=== PATIENT | female | born 1945 | race Caucasian/White ===

== ENCOUNTER → 2016-09-16 | Outpatient (CLI) | payer MEDICARE, OTHER ==
[~2016-09-16] MED LIST: AMLO1TAB67 PO; AMLO1TAB84 PO; ASPI-496 PO; ASPI-770 PO; ATOR10TA PO; ATOR40TA PO; CIPR500T87 PO; CYAN100T PO; LISI-167 PO; METO50TA82 PO; OXYC-302 PO; PANT40TA3 PO; POLY17PO5 PO; TICA90TA PO; TRIA1TAB3 PO
== END | disposition home or self-care (01) ==
LOC: CFH 14:23
PROVIDERS: ATTEND Internal Medicine Cardiovascular Disease
DX: I35.8 Other nonrheumatic aortic valve disorders (principal); I34.8 Other nonrheumatic mitral valve disorders; I34.0 Nonrheumatic mitral (valve) insufficiency; I07.1 Rheumatic tricuspid insufficiency
CPT/HCPCS: 93306

== ENCOUNTER 2017-02-18 00:32 | Emergency (ER) | payer MEDICARE, OTHER ==
[~2017-02-18] VITALS: Ht 167.6 cm; Wt 85.0 kg
[~2017-02-18 00:32] MED LIST changes: -AMLO1TAB67 PO; +AMLO1TAB86 PO
[2017-02-18] MEDS ORDERED: ROSU10TA PO (00:52)
[2017-02-18] MEDS ORDERED: METOPROLOL 1 MG/ML, 5ML ONE (00:58)
[2017-02-18] MEDS ORDERED: METOPROLOL 1 MG/ML, 5ML IVPush ONE (01:00)
[2017-02-18] MEDS ORDERED: SODIUM CHLORIDE 0.9% 1,000ML IVBOLUS ONE (01:00)
[2017-02-18] MEDS ORDERED: SODIUM CHLORIDE FLUSH 10ML SYR IVF ONE (01:00)
[2017-02-18] MEDS ORDERED: MORPHINE SULFATE 4 MG/ML, 1ML IVPush PRN (01:00)
[2017-02-18] MEDS ORDERED: ASPIRIN 81 MG TABLET CHEW PO ONE (01:00)
[2017-02-18] MEDS ORDERED: MORPHINE SULFATE 4 MG/ML, 1ML ONE (01:06)
[2017-02-18] MEDS ORDERED: ASPIRIN 81 MG TABLET CHEW ONE (01:07)
[2017-02-18 01:11] LABS: HEMATOCRIT 43.1 % (34.6-47.8); HEMOGLOBIN 14.7 g/dL (11.7-16.4); WHITE BLOOD COUNT 10.7 x10^3/uL (3.4-10)
[2017-02-18] MEDS ORDERED: PROPOFOL 10 MG/ML, 20ML ONE (01:17)
[2017-02-18 01:23] LABS: ASPARTATE AMINO TRANSFERASE 23 U/L (15-37); BLOOD UREA NITROGEN 17 mg/dL (7-18)
[2017-02-18] MEDS ORDERED: PROPOFOL 10 MG/ML, 20ML IVPush ONE (01:30)
[2017-02-18 01:32] LABS: IS PT STATUS REG ER OR PRE ER? YES
[2017-02-18 02:16] LABS: PATH.CAST-FLAG NOT PRESENT; SPERM-FLAG NOT PRESENT; SRC-FLAG NOT PRESENT; XTAL-FLAG NOT PRESENT; YLC-FLAG NOT PRESENT
[2017-02-18 02:38] VITALS: BP 143/86
== END 2017-02-18 02:54 | disposition home or self-care (01) ==
LOC: ED 01:14
DX: I48.91 Unspecified atrial fibrillation (principal); R07.89 Other chest pain; I25.10 Atherosclerotic heart disease of native coronary artery without angina pectoris
CPT/HCPCS: 36415; 71010; 80053; 81001; 83880; 84436; 84443; 84484; 85025; 85610; 85730; 87086; 92960; 93005; 96361; 96374; 96375; 99152; 99153; 99291; J7030

== ENCOUNTER → 2018-01-03 | Outpatient (CLI) | payer MEDICARE, OTHER ==
[~2018-01-03] MED LIST changes: -ASPI-770 PO; +ASPI81TA59 PO; +REGADENOSON 0.4 MG/5 ML SYRINGE ONE; +ROSU10TA PO
== END | disposition home or self-care (01) ==
LOC: CFH 07:03
PROVIDERS: ATTEND Internal Medicine Cardiovascular Disease
DX: I25.10 Atherosclerotic heart disease of native coronary artery without angina pectoris (principal); I10 Essential (primary) hypertension; Z88.2 Allergy status to sulfonamides
CPT/HCPCS: 78452; 93017; 93306; A9502; J2785

== ENCOUNTER 2018-05-21 18:59 | Inpatient (IN) | payer MEDICARE, OTHER ==
[~2018-05-21] VITALS: Ht 166.4 cm; Wt 87.9 kg
[~2018-05-21 18:59] MED LIST changes: -REGADENOSON 0.4 MG/5 ML SYRINGE ONE
--- NOTE | 2018-05-21 19:05 | NUR ---
brought in by emy from home. patient found on the floor by family ~ 5 pm. last known well 0. c/o fix right side gaze( deviation ) with very slight right facial droop. alert and oriented. + vomiting.
[2018-05-21] MEDS ORDERED: OMNIPAQUE 350 MG/ML, 100ML BOTTLE ONE (19:20)
--- NOTE | 2018-05-21 19:45 | NUR ---
Dr. Vasquez on tele neuro for patient evaluation with the assistance of JOHNSON Bowens. background check coordinator.
[2018-05-21] MEDS ORDERED: ALTEPLASE 1 MG/ML ONE (20:00)
--- NOTE | 2018-05-21 20:08 | NUR ---
evaluation done. patient candidate for alteplase. family and patient ok to have start patient on TPA.
[2018-05-21 20:10] LABS: BASOPHILS # (AUTO) 0.05 x10^3/uL (0-0.1); BASOPHILS % (AUTO) 0 % (0-1); EOSINOPHILS # (AUTO) 0.02 x10^3/uL (0-0.4); EOSINOPHILS % (AUTO) 0 % (1-7); LYMPHOCYTES # (AUTO) 0.69 x10^3/uL (1-3.4); LYMPHOCYTES % (AUTO) 5 % (22-44); MD NO; MEAN CORPUSCULAR HEMOGLOBIN 29.3 pg (27.0-34.8); MEAN CORPUSCULAR HGB CONC 33.8 g/dL (32.4-35.8); MEAN CORPUSCULAR VOLUME 86.7 fL (80-100); MEAN PLATELET VOLUME 7.4 fL (7.4-10.4); MONOCYTES % (AUTO) 6 % (2-9); NEUTROPHILS # (AUTO) 13.75 x10^3/uL (1.8-6.8); NEUTROPHILS % (AUTO) 89 % (42-75); PLATELET COUNT 256 x10^3/uL (130-400); RED BLOOD COUNT 4.66 x10^6/uL (3.82-5.3); RED CELL DISTRIBUTION WIDTH 12.9 % (9.6-15.2)
--- NOTE | 2018-05-21 20:12 | NUR ---
7.74 mg TPA bolus given.
--- NOTE | 2018-05-21 20:13 | NUR ---
69.66 mg TPA infusing at this time.
[2018-05-21] MEDS ORDERED: ONDANSETRON 2MG/ML, 2ML ONE (20:15)
[2018-05-21 20:21] LABS: INTERNATIONAL NORMALIZED RATIO 1.08 (0.93-1.1); PROTHROMBIN TIME 11.4 Seconds (9.6-11.5)
[2018-05-21] MEDS ORDERED: ONDANSETRON 2MG/ML, 2ML IVPush ONE (20:30)
[2018-05-21] MEDS ORDERED: SODIUM CHLORIDE FLUSH 10ML SYR IVF PRN (20:30)
[2018-05-21] MEDS ORDERED: ALTEPLASE IV ONE ×2 (21:00)
--- NOTE | 2018-05-21 21:13 | NUR ---
TPA INFUSED. PATIENT ALERT AND ORIENTED. PUPILS 3 MM BILATERAL EQUAL AND REACTIVE. C/O HEADACHE. VSS
--- NOTE | 2018-05-21 22:00 | NUR ---
Dr. Moreau at bedside. daughter updated for plan of care. VSS. awaiting room assignment.
[2018-05-21] MEDS: SODIUM CHLORIDE 0.9% 1,000 ML IV SCH (22:28)
[2018-05-21] MEDS ORDERED: ONDANSETRON 4 MG TABLET PO PRN (22:30)
[2018-05-21] MEDS ORDERED: POLYETHYLENE GLYCOL 17 GM PACKET PO PRN (22:30)
[2018-05-21] MEDS ORDERED: BUTALB/APAP/CAFFEINE 50MG/325MG/40MG PO PRN (22:30)
[2018-05-21] MEDS ORDERED: ONDANSETRON 2MG/ML, 2ML IVPush PRN (22:30)
--- NOTE | 2018-05-21 22:54 | NUR ---
Bed assigned. report to JOHNSON Bob.
[2018-05-21] MEDS: ATORVASTATIN 40 MG TABLET PO SCH (23:26)
[2018-05-21] MEDS: ACETAMINOPHEN 325 MG TABLET PO PRN (23:26)
[2018-05-22 04:20] LABS: BASOPHILS # (AUTO) 0.03 x10^3/uL (0-0.1); BASOPHILS % (AUTO) 0 % (0-1); EOSINOPHILS % (AUTO) 2 % (1-7); LYMPHOCYTES # (AUTO) 1.04 x10^3/uL (1-3.4); LYMPHOCYTES % (AUTO) 10 % (22-44); MD NO; MEAN CORPUSCULAR HEMOGLOBIN 29.7 pg (27.0-34.8); MEAN CORPUSCULAR HGB CONC 34.6 g/dL (32.4-35.8); MEAN CORPUSCULAR VOLUME 85.9 fL (80-100); MEAN PLATELET VOLUME 7.3 fL (7.4-10.4); MONOCYTES # (AUTO) 0.72 x10^3/uL (0.2-0.8); MONOCYTES % (AUTO) 7 % (2-9); NEUTROPHILS # (AUTO) 8.19 x10^3/uL (1.8-6.8); NEUTROPHILS % (AUTO) 81 % (42-75); PLATELET COUNT 236 x10^3/uL (130-400); RED BLOOD COUNT 4.16 x10^6/uL (3.82-5.3); RED CELL DISTRIBUTION WIDTH 12.8 % (9.6-15.2)
[2018-05-22 04:26] VITALS: BP 127/54
[2018-05-22 04:32] LABS: ALANINE AMINOTRANSFERASE 19 U/L (12-78); ALBUMIN 3.2 g/dL (3.4-5.0); ANION GAP 6 mmol/L (5-15); CALCIUM 8.7 mg/dL (8.5-10.1); CHLORIDE 108 mmol/L (98-107); CREATININE 0.72 mg/dL (0.55-1.02)
[2018-05-22 04:34] LABS: ALKALINE PHOSPHATASE 73 U/L (45-117); BILIRUBIN,TOTAL 0.8 mg/dL (0.2-1.0); CHOL/HDL RATIO 3.2; CHOLESTEROL, TOTAL 116 mg/dL (140-239); HDL CHOL % 31 % (28-40); HDL CHOLESTEROL (DIRECT) 36 mg/dL (40-60); LDL CHOLESTEROL,CALCULATED 66 mg/dL (54-169); LDL/HDL RATIO 1.8 (0.5-3.0); TOTAL PROTEIN 6.5 g/dL (6.4-8.2); TRIGLYCERIDES 68 mg/dL (50-200); VLDL CHOLESTEROL 14 mg/dL (0-25)
[2018-05-22 04:55] VITALS: BP 136/57
[2018-05-22] MEDS: LOSARTAN 50MG TABLET PO SCH (09:00)
[2018-05-22] MEDS: ACETAMINOPHEN 325 MG TABLET PO PRN (09:53)
[2018-05-22] MEDS: METOPROLOL TARTRATE 50 MG TABLET PO SCH ×2 (09:54→21:11)
[2018-05-22] MEDS: AMLODIPINE 10 MG TAB PO SCH (11:18)
[2018-05-22] MEDS ORDERED: GADOBUTROL 10 MMOL/10 ML PFS ONE (13:07)
[2018-05-22] MEDS: SODIUM CHLORIDE 0.9% 1,000 ML IV SCH (18:00)
[2018-05-22] MEDS: ATORVASTATIN 40 MG TABLET PO SCH (21:01)
[2018-05-23 04:00] VITALS: BP 126/70
[2018-05-23] MEDS: SODIUM CHLORIDE 0.9% 1,000 ML IV SCH (06:00)
[2018-05-23] MEDS ORDERED: TEMPLATE NON-FORMULARY MED. (Rosuvastatin Calcium** (Crestor**) 10 MG) PO SCH (09:00)
[2018-05-23] MEDS: METOPROLOL TARTRATE 50 MG TABLET PO SCH (09:00)
[2018-05-23] MEDS: AMLODIPINE 10 MG TAB PO SCH (09:28)
[2018-05-23] MEDS: LOSARTAN 50MG TABLET PO SCH (09:28)
[2018-05-23] MEDS ORDERED: ASPIRIN 81 MG TABLET EC PO SCH (09:30)
[2018-05-23] MEDS ORDERED: CLOPIDOGREL 75 MG TABLET PO SCH (09:30)
[2018-05-23] MEDS: APIXABAN 5 MG TABLET PO SCH ×2 (11:01→21:08)
[2018-05-23 15:30] VITALS: BP 100/55
[2018-05-23 17:00] VITALS: BP 148/75
[2018-05-23 19:55] VITALS: BP 151/75
[2018-05-23] MEDS: ATORVASTATIN 40 MG TABLET PO SCH (21:08)
[2018-05-24] VITALS (7 sets, daily range): BP systolic 128–178; BP diastolic 68–97
[2018-05-24 05:16] LABS: BASOPHILS # (AUTO) 0.03 x10^3/uL (0-0.1); BASOPHILS % (AUTO) 0 % (0-1); EOSINOPHILS # (AUTO) 0.18 x10^3/uL (0-0.4); EOSINOPHILS % (AUTO) 2 % (1-7); LYMPHOCYTES # (AUTO) 1.37 x10^3/uL (1-3.4); LYMPHOCYTES % (AUTO) 17 % (22-44); MD NO; MEAN CORPUSCULAR HEMOGLOBIN 28.9 pg (27.0-34.8); MEAN CORPUSCULAR HGB CONC 33.2 g/dL (32.4-35.8); MEAN CORPUSCULAR VOLUME 87.1 fL (80-100); MEAN PLATELET VOLUME 7.7 fL (7.4-10.4); MONOCYTES # (AUTO) 0.72 x10^3/uL (0.2-0.8); MONOCYTES % (AUTO) 9 % (2-9); NEUTROPHILS # (AUTO) 5.91 x10^3/uL (1.8-6.8); NEUTROPHILS % (AUTO) 72 % (42-75); PLATELET COUNT 233 x10^3/uL (130-400); RED BLOOD COUNT 4.38 x10^6/uL (3.82-5.3); RED CELL DISTRIBUTION WIDTH 12.9 % (9.6-15.2)
[2018-05-24 05:28] LABS: CHLORIDE 108 mmol/L (98-107)
[2018-05-24 05:40] LABS: ANION GAP 6 mmol/L (5-15); CALCIUM 9.1 mg/dL (8.5-10.1)
[2018-05-24] MEDS: APIXABAN 5 MG TABLET PO SCH ×2 (10:43→21:35)
[2018-05-24] MEDS: LOSARTAN 50MG TABLET PO SCH (10:43)
[2018-05-24] MEDS: AMLODIPINE 10 MG TAB PO SCH (10:43)
[2018-05-24] MEDS ORDERED: APIX5TAB PO (12:44)
[2018-05-24] MEDS ORDERED: METO50TA82 PO (12:44)
[2018-05-24] MEDS ORDERED: ATOR40TA78 PO (12:44)
[2018-05-24] MEDS: METOPROLOL TARTRATE 25 MG TABLET PO SCH ×2 (13:56→18:23)
[2018-05-24] MEDS: ATORVASTATIN 40 MG TABLET PO SCH (21:34)
[2018-05-25 01:34] VITALS: BP 135/71
[2018-05-25] MEDS: METOPROLOL TARTRATE 25 MG TABLET PO SCH ×2 (05:37→17:41)
[2018-05-25 07:16] VITALS: BP 134/78
[2018-05-25] MEDS: AMLODIPINE 10 MG TAB PO SCH (08:01)
[2018-05-25] MEDS: LOSARTAN 50MG TABLET PO SCH (08:02)
[2018-05-25] MEDS: APIXABAN 5 MG TABLET PO SCH ×2 (08:02→20:35)
[2018-05-25 12:20] VITALS: BP 148/73
[2018-05-25 18:27] VITALS: BP 146/73
[2018-05-25] MEDS: ATORVASTATIN 40 MG TABLET PO SCH (20:35)
[2018-05-26 00:54] VITALS: BP 157/77
[2018-05-26] MEDS: METOPROLOL TARTRATE 25 MG TABLET PO SCH (06:00)
[2018-05-26 06:22] LABS: ANION GAP 7 mmol/L (5-15); CALCIUM 9.7 mg/dL (8.5-10.1); CHLORIDE 106 mmol/L (98-107)
[2018-05-26 06:23] LABS: BASOPHILS # (AUTO) 0.03 x10^3/uL (0-0.1); BASOPHILS % (AUTO) 0 % (0-1); CREATININE 0.76 mg/dL (0.55-1.02); EOSINOPHILS # (AUTO) 0.26 x10^3/uL (0-0.4); EOSINOPHILS % (AUTO) 3 % (1-7); LYMPHOCYTES # (AUTO) 1.49 x10^3/uL (1-3.4); LYMPHOCYTES % (AUTO) 16 % (22-44); MD NO; MEAN CORPUSCULAR HEMOGLOBIN 29.7 pg (27.0-34.8); MEAN CORPUSCULAR HGB CONC 34.5 g/dL (32.4-35.8); MEAN CORPUSCULAR VOLUME 86.2 fL (80-100); MEAN PLATELET VOLUME 7.8 fL (7.4-10.4); MONOCYTES # (AUTO) 0.63 x10^3/uL (0.2-0.8); MONOCYTES % (AUTO) 7 % (2-9); NEUTROPHILS # (AUTO) 6.73 x10^3/uL (1.8-6.8); NEUTROPHILS % (AUTO) 74 % (42-75); PLATELET COUNT 263 x10^3/uL (130-400); RED BLOOD COUNT 4.78 x10^6/uL (3.82-5.3); RED CELL DISTRIBUTION WIDTH 12.6 % (9.6-15.2)
[2018-05-26 07:12] VITALS: BP 134/80
[2018-05-26] MEDS: AMLODIPINE 10 MG TAB PO SCH (08:00)
[2018-05-26] MEDS: LOSARTAN 50MG TABLET PO SCH (08:18)
[2018-05-26] MEDS: APIXABAN 5 MG TABLET PO SCH (08:18)
[2018-05-26] MEDS ORDERED: ONDA4TAB7 PO (10:46)
[2018-05-26] MEDS ORDERED: ACET325T14 PO (10:46)
[2018-05-26 12:48] VITALS: BP 131/78
[2018-05-26 18:25] VITALS: BP 147/78
[2018-05-26 19:27] VITALS: BP 155/80
== END 2018-05-26 20:20 | DRG 62 ==
LOC: ED 19:16 → EDIP 20:23 → ICU 22:50 → 5SO 05-23 16:53
PROVIDERS: ADMIT Hospitalist; ATTEND Hospitalist
DX: I63.40 Cerebral infarction due to embolism of unspecified cerebral artery (principal); R41.4 Neurologic neglect syndrome; T80.818A Extravasation of other vesicant agent, initial encounter; H02.401 Unspecified ptosis of right eyelid; I48.0 Paroxysmal atrial fibrillation; E66.9 Obesity, unspecified; Z68.31 Body mass index [BMI] 31.0-31.9, adult; E88.09 Other disorders of plasma-protein metabolism, not elsewhere classified; G47.33 Obstructive sleep apnea (adult) (pediatric); G93.89 Other specified disorders of brain; H51.0 Palsy (spasm) of conjugate gaze; H55.00 Unspecified nystagmus; I05.0 Rheumatic mitral stenosis; I10 Essential (primary) hypertension; I25.10 Atherosclerotic heart disease of native coronary artery without angina pectoris; I27.20 Pulmonary hypertension, unspecified; R29.704 NIHSS score 4; R29.810 Facial weakness; Z79.01 Long term (current) use of anticoagulants; Z80.49 Family history of malignant neoplasm of other genital organs; Z82.3 Family history of stroke; Z85.42 Personal history of malignant neoplasm of other parts of uterus; Z87.891 Personal history of nicotine dependence; Z90.49 Acquired absence of other specified parts of digestive tract; Z95.5 Presence of coronary angioplasty implant and graft; Z90.710 Acquired absence of both cervix and uterus; Z88.2 Allergy status to sulfonamides
CPT/HCPCS: 36415; 70450; 70496; 70498; 70553; 80047; 80048; 80053; 80061; 83735; 84100; 85025; 85610; 85730; 87081; 93005; 93306; 96365; 96375; A9585; G0378; J2405; J2997; Q9967; 92523-GN; J7030

== ENCOUNTER 2019-06-18 12:05 | Emergency (ER) | payer MEDICARE, OTHER ==
[~2019-06-18] VITALS: Ht 165.1 cm; Wt 84.0 kg
[~2019-06-18 12:05] MED LIST changes: +ACET325T14 PO; +AMLO-150 PO; +APIX5TAB PO; +ATOR40TA78 PO; -CYAN100T PO; +CYAN100T2 PO; +LOSA100T14 PO; +ONDA4TAB7 PO; -ROSU10TA PO; +ROSU10TA2 PO
[2019-06-18] MEDS ORDERED: SODIUM CHLORIDE FLUSH 10ML SYR IVF ONE (13:00)
[2019-06-18] MEDS ORDERED: hydrALAzine 20 MG/ML, 1ML IV ONE (13:00)
[2019-06-18 13:05] LABS: BASOPHILS # (AUTO) 0.03 x10^3/uL (0-0.1); BASOPHILS % (AUTO) 1 % (0-1); EOSINOPHILS # (AUTO) 0.05 x10^3/uL (0-0.4); EOSINOPHILS % (AUTO) 1 % (1-7); LYMPHOCYTES # (AUTO) 1.05 x10^3/uL (1-3.4); LYMPHOCYTES % (AUTO) 14 % (22-44); MD NO; MEAN CORPUSCULAR HEMOGLOBIN 29.3 pg (27.0-34.8); MEAN CORPUSCULAR HGB CONC 33.4 g/dL (32.4-35.8); MEAN CORPUSCULAR VOLUME 87.8 fL (80-100); MEAN PLATELET VOLUME 7.9 fL (7.4-10.4); MONOCYTES # (AUTO) 0.44 x10^3/uL (0.2-0.8); MONOCYTES % (AUTO) 6 % (2-9); NEUTROPHILS # (AUTO) 5.76 x10^3/uL (1.8-6.8); NEUTROPHILS % (AUTO) 79 % (42-75); PLATELET COUNT 228 x10^3/uL (130-400); RED BLOOD COUNT 4.82 x10^6/uL (3.82-5.3); RED CELL DISTRIBUTION WIDTH 13.6 % (9.6-15.2)
[2019-06-18] MEDS ORDERED: hydrALAzine 20 MG/ML, 1ML ONE (13:05)
[2019-06-18 13:14] LABS: ALBUMIN 4.2 g/dL (3.4-5.0); ANION GAP 4 mmol/L (5-15); CALCIUM 9.9 mg/dL (8.5-10.1); CHLORIDE 111 mmol/L (98-107)
[2019-06-18 13:20] LABS: CREATININE 0.84 mg/dL (0.55-1.02); TROPONIN I < 0.015 ng/mL (0.000-0.045)
--- NOTE | 2019-06-18 14:01 | NUR ---
PT UPRIGHT ON GURNEY AWAKE & COMFORTABLE, RESPONDS APPROP TO STAFF, NAD WITH BP IMPROVED AFTER MED, COMFORT MEASURES PROVIDED, CALL LIGHT WITHIN REACH.
[2019-06-18 14:24] VITALS: BP 151/72
== END 2019-06-18 14:28 | disposition home or self-care (01) ==
LOC: ED 14:05
DX: I10 Essential (primary) hypertension (principal); I48.91 Unspecified atrial fibrillation; I25.10 Atherosclerotic heart disease of native coronary artery without angina pectoris; Z86.73 Personal history of transient ischemic attack (TIA), and cerebral infarction without residual deficits; Z90.49 Acquired absence of other specified parts of digestive tract
CPT/HCPCS: 36415; 80048; 82040; 84484; 85025; 93005; 96374; 99284; J0360

== ENCOUNTER 2020-05-14 04:07 | Inpatient (IN) | payer MEDICARE, OTHER ==
[~2020-05-14] VITALS: Ht 157.5 cm; Wt 73.0 kg
[~2020-05-14 04:07] MED LIST changes: -CYAN100T2 PO; +CYAN100T22 PO; +DOXA4TAB3 PO; +ISOS30TA8 PO; +METO25TA35 PO; +NITR0.4T28 SL
[2020-05-14] MEDS ORDERED: DILTIAZEM 5 MG/ML, 5ML ONE (04:51)
[2020-05-14] MEDS ORDERED: DILTIAZEM 5 MG/ML, 5ML IV ONE (05:00)
[2020-05-14] MEDS ORDERED: SODIUM CHLORIDE FLUSH 10ML SYR IVF ONE (05:00)
--- NOTE | 2020-05-14 05:21 | NUR ---
Patient comes in with complaints of left side chest pain and SOB. Patient has a history of A.fib. Patient stated that is woke her up at 2am. Has had a history of being cardioverted and also converted with medication. Patient placed on monitor tech and IV established. Medicated per JUL. Patient resting at this time. States that her pain is better after 1 dose of diltizam. Call light within reach. Will con't to monitor
[2020-05-14] MEDS ORDERED: DILTIAZEM 125 MG in SODIUM CHLORIDE 0.9% 100 ML IV SCH ×2 (05:30→12:00)
[2020-05-14 05:52] LABS: BASOPHILS % (AUTO) 0 % (0-1); EOSINOPHILS % (AUTO) 1 % (1-7); LYMPHOCYTES % (AUTO) 12 % (22-44); MEAN CORPUSCULAR HEMOGLOBIN 29.8 pg (27.0-34.8); MEAN CORPUSCULAR HGB CONC 33.6 g/dL (32.4-35.8); MEAN PLATELET VOLUME 8.3 fL (7.4-10.4); MONOCYTES % (AUTO) 7 % (2-9); NEUTROPHILS % (AUTO) 80 % (42-75); PLATELET COUNT 202 x10^3/uL (130-400); RED BLOOD COUNT 4.41 x10^6/uL (3.82-5.3); RED CELL DISTRIBUTION WIDTH 13.1 % (9.6-15.2)
[2020-05-14 06:03] LABS: ALBUMIN 3.5 g/dL (3.4-5.0); ANION GAP 3 mmol/L (5-15); CALCIUM 9.3 mg/dL (8.5-10.1); CHLORIDE 112 mmol/L (98-107)
[2020-05-14 06:06] LABS: MD NO
[2020-05-14 06:09] LABS: ALANINE AMINOTRANSFERASE 25 U/L (12-78); ALKALINE PHOSPHATASE 70 U/L (45-117); BILIRUBIN,TOTAL 0.7 mg/dL (0.2-1.0); CREATININE 0.77 mg/dL (0.55-1.02); TOTAL PROTEIN 6.5 g/dL (6.4-8.2)
[2020-05-14 06:26] LABS: TROPONIN I 0.124 ng/mL (0.000-0.045)
[2020-05-14] MEDS ORDERED: ASPIRIN 81 MG TABLET CHEW PO ONE (07:00)
[2020-05-14] MEDS ORDERED: ASPIRIN 81 MG TABLET CHEW ONE (07:02)
--- NOTE | 2020-05-14 07:07 | NUR ---
PT NOT GIVEN ASA DUE TO BEING ON ELIQUIS. PT STATES HER DR HAS ADVISED HER AGAINST ASA. ED MD ARELLANO ADVISED.
[2020-05-14] MEDS ORDERED: PROPOFOL 10 MG/ML, 20ML ONE (08:19)
--- NOTE | 2020-05-14 08:44 | NUR ---
PROCEDURAL SEDATION FOR CARDIOVERSION. SEE PAPER CHART.
[2020-05-14] MEDS ORDERED: PROPOFOL 10 MG/ML, 20ML IVPush ONE (09:00)
[2020-05-14] MEDS ORDERED: SODIUM CHLORIDE FLUSH 10ML SYR IVF PRN (10:00)
[2020-05-14] MEDS ORDERED: ONDANSETRON 2MG/ML, 2ML IVPush PRN (12:00)
[2020-05-14] MEDS ORDERED: ACETAMINOPHEN 325 MG TABLET PO PRN (12:00)
--- NOTE | 2020-05-14 12:37 | NUR ---
DAUGHTER PATEL [phone]
[2020-05-14] MEDS ORDERED: PRED5DRO20 LEFTEYE (15:24)
--- NOTE | 2020-05-14 17:54 | NUR ---
PT DINNER TRAY DELIVERED
--- NOTE | 2020-05-14 19:00 | NUR ---
Report received from JOHNSON Rios. This RN to assume care.
--- NOTE | 2020-05-14 19:35 | NUR ---
Updated patient's daughter about the plan of care.
--- NOTE | 2020-05-14 20:09 | NUR ---
Assisted patient to bedside commode.
[2020-05-14] MEDS ORDERED: ENALAPRILAT 1.25 MG/ML, 2ML IVPush PRN (20:30)
[2020-05-14] MEDS ORDERED: APIXABAN 5 MG TABLET ONE (20:41)
[2020-05-14] MEDS ORDERED: ATORVASTATIN 40 MG TABLET ONE (20:42)
[2020-05-14] MEDS ORDERED: METOPROLOL TARTRATE 25 MG TAB ONE (20:42)
[2020-05-14] MEDS: METOPROLOL TARTRATE 25 MG TAB PO SCH (20:55)
[2020-05-14] MEDS: APIXABAN 5 MG TABLET PO SCH (20:56)
[2020-05-14] MEDS ORDERED: ATORVASTATIN 40 MG TABLET PO SCH (21:00)
--- NOTE | 2020-05-14 21:06 | NUR ---
Report given to JOHNSON Estrada. Patient to be transferred to room 522-1.
[2020-05-14 22:25] VITALS: BP 181/84
[2020-05-14] MEDS: hydrALAzine 20 MG/ML, 1ML IV PRN (22:40)
[2020-05-15 01:47] VITALS: BP 155/77
[2020-05-15 05:32] LABS: BASOPHILS % (AUTO) 1 % (0-1); EOSINOPHILS % (AUTO) 2 % (1-7); LYMPHOCYTES % (AUTO) 21 % (22-44); MEAN CORPUSCULAR HGB CONC 34.1 g/dL (32.4-35.8); MONOCYTES % (AUTO) 7 % (2-9); NEUTROPHILS % (AUTO) 70 % (42-75); PLATELET COUNT 218 x10^3/uL (130-400); RED BLOOD COUNT 4.41 x10^6/uL (3.82-5.3)
[2020-05-15 05:49] LABS: MD NO
[2020-05-15 07:00] LABS: ALANINE AMINOTRANSFERASE 24 U/L (12-78); ALBUMIN 3.5 g/dL (3.4-5.0); ANION GAP 4 mmol/L (5-15); CALCIUM 9.7 mg/dL (8.5-10.1); CHLORIDE 112 mmol/L (98-107); CHOLESTEROL, TOTAL 112 mg/dL (140-239); CREATININE 0.82 mg/dL (0.55-1.02)
[2020-05-15 07:05] LABS: ALKALINE PHOSPHATASE 66 U/L (45-117); BILIRUBIN,TOTAL 0.9 mg/dL (0.2-1.0); CHOL/HDL RATIO 2.6; HDL CHOL % 38 % (28-40); HDL CHOLESTEROL (DIRECT) 43 mg/dL (40-60); LDL CHOLESTEROL,CALCULATED 52 mg/dL (54-169); LDL/HDL RATIO 1.2 (0.5-3.0); TOTAL PROTEIN 6.6 g/dL (6.4-8.2); TRIGLYCERIDES 84 mg/dL (50-200); VLDL CHOLESTEROL 17 mg/dL (0-25)
[2020-05-15] MEDS: APIXABAN 5 MG TABLET PO SCH (08:53)
[2020-05-15] MEDS: METOPROLOL TARTRATE 25 MG TAB PO SCH (08:54)
[2020-05-15] MEDS ORDERED: LOSARTAN 100 MG TAB PO SCH (09:00)
[2020-05-15] MEDS ORDERED: REGADENOSON 0.4 MG/5 ML SYRINGE ONE (09:32)
[2020-05-15 11:49] VITALS: BP 158/72
[2020-05-15 12:04] LABS: TROPONIN I 0.731 ng/mL (0.000-0.045)
[2020-05-15 14:25] VITALS: BP 186/85
[2020-05-15 15:20] VITALS: BP 190/94
[2020-05-15] MEDS: hydrALAzine 20 MG/ML, 1ML IV PRN (15:34)
[2020-05-15] MEDS ORDERED: PHARMACY INSTRUCTION MC PRN (16:00)
[2020-05-15] MEDS ORDERED: DOXAZOSIN 2MG TABLET PO SCH ×2 (16:30→21:00)
== END 2020-05-15 16:57 | disposition home or self-care (01) | DRG 280 ==
LOC: ED 05:58 → OBSVTOIN 09:33 → INTOOBSV 09:33 → EDIP 09:33 → 5SO 21:29 → DCLOUNGE 05-15 16:52
PROVIDERS: ADMIT Internal Medicine; ATTEND Internal Medicine
PROC: 5A2204Z Restoration of Cardiac Rhythm, Single (ICD-10-PCS; principal; 2020-05-14)
DX: I21.4 Non-ST elevation (NSTEMI) myocardial infarction (principal); I50.33 Acute on chronic diastolic (congestive) heart failure; D68.69 Other thrombophilia; I48.20 Chronic atrial fibrillation, unspecified; I25.119 Atherosclerotic heart disease of native coronary artery with unspecified angina pectoris; I11.0 Hypertensive heart disease with heart failure; I48.0 Paroxysmal atrial fibrillation; I34.2 Nonrheumatic mitral (valve) stenosis; E78.5 Hyperlipidemia, unspecified; Z88.2 Allergy status to sulfonamides; Z88.8 Allergy status to other drugs, medicaments and biological substances; Z79.01 Long term (current) use of anticoagulants; Z85.42 Personal history of malignant neoplasm of other parts of uterus; Z86.73 Personal history of transient ischemic attack (TIA), and cerebral infarction without residual deficits; Z95.5 Presence of coronary angioplasty implant and graft; Z90.49 Acquired absence of other specified parts of digestive tract; Z90.710 Acquired absence of both cervix and uterus
CPT/HCPCS: 36415; 71045; 78452; 80053; 80061; 83880; 84443; 84484; 85025; 93005; 93017; 99285; G0378; J2785; A9502; J0360

== ENCOUNTER 2020-08-18 00:43 | Emergency (ER) | payer MEDICARE, OTHER ==
[~2020-08-18] VITALS: Ht 165.1 cm; Wt 76.3 kg
[~2020-08-18 00:43] MED LIST changes: -OXYC-302 PO; +OXYC1TAB14 PO; +PRED5DRO20 LEFTEYE
[2020-08-18] MEDS ORDERED: PROPOFOL 10 MG/ML, 20ML ONE (01:49)
[2020-08-18 01:55] LABS: BASOPHILS % (AUTO) 1 % (0-1); EOSINOPHILS % (AUTO) 2 % (1-7); LYMPHOCYTES % (AUTO) 20 % (22-44); MEAN CORPUSCULAR HEMOGLOBIN 29.9 pg (27.0-34.8); MEAN CORPUSCULAR HGB CONC 34.2 g/dL (32.4-35.8); MEAN PLATELET VOLUME 8.5 fL (7.4-10.4); MONOCYTES % (AUTO) 8 % (2-9); NEUTROPHILS % (AUTO) 70 % (42-75); PLATELET COUNT 180 x10^3/uL (130-400); RED BLOOD COUNT 4.44 x10^6/uL (3.82-5.3); RED CELL DISTRIBUTION WIDTH 13.9 % (9.6-15.2)
[2020-08-18 01:57] LABS: MD NO
[2020-08-18] MEDS ORDERED: PROPOFOL 10 MG/ML, 20ML IVPush ONE (02:00)
[2020-08-18 02:03] LABS: ALBUMIN 3.8 g/dL (3.4-5.0); ANION GAP 2 mmol/L (5-15); CALCIUM 9.3 mg/dL (8.5-10.1); CHLORIDE 114 mmol/L (98-107); CREATININE 0.83 mg/dL (0.55-1.02)
[2020-08-18 02:07] LABS: TROPONIN I < 0.015 ng/mL (0.000-0.045)
--- NOTE | 2020-08-18 02:34 | NUR ---
pt awoke in night with palpatations and came to er. pt has hx of a-fib rvr. pt in a-fib rvr at er triage contact. pt agreed to synch cardioversion and told us "it is the only thing tht works to covert her". pt sedated and sych cardioverted 1x with pt hr decreasing from 130s-140s irregular to 60s and regular. pt stated "i feel better'
[2020-08-18 03:24] VITALS: BP 145/69
--- NOTE | 2020-08-18 03:26 | NUR ---
PATIENT CLEARED FOR DISCHARGE. NO NOTED ACUTE DISTRESS. PATIENT AND FAMILY VERBALIZED UNDERSTANDING OF SELF CARE AND FOLLOW UP CARE. PT VITAL SIGNS STABLE. PATIENT TAKEN TO DISCHARGE DESK IN WHEELCHAIR PER REQUEST WITH FAMILY.
== END 2020-08-18 03:27 | disposition home or self-care (01) ==
LOC: ED 03:00
DX: I48.0 Paroxysmal atrial fibrillation (principal); R07.89 Other chest pain; R00.0 Tachycardia, unspecified; I10 Essential (primary) hypertension; I48.91 Unspecified atrial fibrillation; Z98.61 Coronary angioplasty status; I25.10 Atherosclerotic heart disease of native coronary artery without angina pectoris; Z86.73 Personal history of transient ischemic attack (TIA), and cerebral infarction without residual deficits; Z90.49 Acquired absence of other specified parts of digestive tract
CPT/HCPCS: 36415; 71045; 80048; 82040; 84484; 85025; 92960; 93005; 99291

== ENCOUNTER 2020-09-03 19:59 | Emergency (ER) | payer MEDICARE, OTHER ==
[~2020-09-03] VITALS: Ht 165.1 cm; Wt 72.6 kg
--- NOTE | 2020-09-03 20:15 | NUR ---
PT HERE FOR LOWER ABD PAIN. BP ELEVATED. PT HAS HX OF BOWEL OBSTRUCTION. PT DENIES N/V. DAUGHT ER AT BEDSIDE
--- NOTE | 2020-09-03 20:40 | NUR ---
PT AT XRAY
[2020-09-03] MEDS ORDERED: PINK LADY ENEMA 490 ML BOTTLE PR ONE (21:00)
[2020-09-03 21:21] LABS: BASOPHILS % (AUTO) 1 % (0-1); EOSINOPHILS % (AUTO) 1 % (1-7); LYMPHOCYTES % (AUTO) 9 % (22-44); MEAN CORPUSCULAR HEMOGLOBIN 29.2 pg (27.0-34.8); MEAN CORPUSCULAR HGB CONC 33.9 g/dL (32.4-35.8); MEAN PLATELET VOLUME 8.3 fL (7.4-10.4); MONOCYTES % (AUTO) 7 % (2-9); NEUTROPHILS % (AUTO) 83 % (42-75); PLATELET COUNT 208 x10^3/uL (130-400); RED BLOOD COUNT 4.23 x10^6/uL (3.82-5.3); RED CELL DISTRIBUTION WIDTH 13.9 % (9.6-15.2)
[2020-09-03 21:23] LABS: MD NO
[2020-09-03 21:27] LABS: ALANINE AMINOTRANSFERASE 23 U/L (12-78); ALBUMIN 3.7 g/dL (3.4-5.0); ANION GAP 7 mmol/L (5-15); CALCIUM 9.4 mg/dL (8.5-10.1); CHLORIDE 108 mmol/L (98-107); CREATININE 0.72 mg/dL (0.55-1.02)
--- NOTE | 2020-09-03 21:27 | NUR ---
[facility] ORDERED. PT UPDATED ON POC. VSS. CALL LIGHT IN REACH
[2020-09-03 21:29] LABS: ALKALINE PHOSPHATASE 65 U/L (45-117); BILIRUBIN,TOTAL 1.3 mg/dL (0.2-1.0); TOTAL PROTEIN 6.7 g/dL (6.4-8.2)
--- NOTE | 2020-09-03 22:36 | NUR ---
PT GIVEN [facility] ENEMA. PT RETAINED ENEMA FOR 5 MIN. PT TOLERATED WELL. PT ASSISTED TO BEDSIDE COMMODE. PT SITTING ON COMMODE AT THIS TIME. VSS. CALL LIGHT IN REACH
--- NOTE | 2020-09-03 23:20 | NUR ---
Caregiver given discharge instructions and they have confirmed that they understand the instructions. Patient taken out via wheelchair.
[2020-09-03 23:21] VITALS: BP 178/76
== END 2020-09-03 23:22 | disposition home or self-care (01) ==
LOC: ED 21:12
DX: K59.00 Constipation, unspecified (principal); R10.30 Lower abdominal pain, unspecified; I10 Essential (primary) hypertension; I25.10 Atherosclerotic heart disease of native coronary artery without angina pectoris; I48.91 Unspecified atrial fibrillation; Z86.73 Personal history of transient ischemic attack (TIA), and cerebral infarction without residual deficits; Z90.49 Acquired absence of other specified parts of digestive tract; Z98.61 Coronary angioplasty status
CPT/HCPCS: 36415; 74021; 80053; 83690; 85025; 99284